=== PATIENT | male | born 1970 | race Caucasian/White ===

== ENCOUNTER 2022-02-22 12:02 | Emergency (ER) | payer BC, SELFPAY ==
--- NOTE | ~2022-02-22 | XR_ITS ---
EXAMINATION: XR CHEST CLINICAL INFORMATION: Chest pain COMPARISON: None TECHNIQUE: Portable upright AP view of the chest was obtained. FINDINGS: No pneumothorax, pleural reaction, or effusion. Lungs are clear. Heart size normal. Vascularity unremarkable. No visible acute bony abnormality. No free air beneath the diaphragm. XR/XR chest 1V IMPRESSION: Unremarkable examination.
[2022-02-22 12:55] VITALS: BP 135/79; PULSE 58; RESP 18; TEMP 36.6; O2SAT 98; BMI 33.5
[2022-02-22 14:05] LABS: MANUAL DIFF FLAG NO
[2022-02-22 14:07] LABS: Basophils Absolute Auto 0.1 X10*3/uL (0.0-0.2); Basophils Percent Auto 0.6 % (0-2); Eosinophils Absolute Auto 0.2 X10*3/uL (0.0-0.4); Eosinophils Percent Auto 2.7 % (0-4); Hematocrit 40.4 % (42.0-52.0); Hemoglobin 13.6 g/dl (14.0-18.0); Imm Gran Abs Auto 0.03 X10*3/uL (0.00-0.03); Imm Gran Pct Auto 0.4 % (0.0-0.4); Lymphocytes Absolute Auto 2.2 X10*3/uL (1.2-4.9); Lymphocytes Percent Auto 28.5 % (20-40); Mean Corpuscular HGB Conc 33.7 g/dl (31.0-36.0); Mean Corpuscular Hemoglobin 30.5 pg (27.0-33.0); Mean Corpuscular Volume 90.6 fL (80.0-98.0); Mean Platelet Volume 8.8 fL (9.4-12.4); Monocytes Absolute Auto 0.5 X10*3/uL (0.1-1.2); Neutrophils Absolute Auto 4.7 x10*3/uL (2.0-8.3); Neutrophils Percent Auto 60.8 % (45-73); Platelet Count 277 X10*3/uL (160-400); Red Blood Count 4.46 X10*6/uL (4.60-5.80); Red Cell Distribution Width 11.7 % (11.0-16.0); White Blood Count 7.7 X10*3/uL (4.8-10.8)
[2022-02-22 14:35] LABS: Anion Gap 13 (12-20); Blood Urea Nitrogen 16 mg/dL (9-16); Carbon Dioxide 27 mmol/L (22-29); Chloride 104 mmol/L (96-108); Creatinine Clr Calc Pharmacy 116.4; Estimated Glomerular Filt Rate > 60; Glucose Random 93 mg/dL (60-115); Potassium 4.3 mmol/L (3.3-5.1); Sodium 140 mmol/L (135-145)
[2022-02-22 14:37] LABS: Troponin-I High Sensitivity < 3.5 ng/L (<3.5-35.0)
--- NOTE | 2022-02-22 14:45 | ECG_ITS ---
Test Reason : chest pain Blood Pressure : / mmHG Vent. Rate : 061 BPM Atrial Rate : 061 BPM P-R Int : 164 ms QRS Dur : 090 ms QT Int : 426 ms P-R-T Axes : 028 -05 -01 degrees QTc Int : 428 ms Normal sinus rhythm Minimal voltage criteria for LVH, may be normal variant ( R in aVL ) Septal infarct , age undetermined Abnormal ECG No previous ECGs available Referred By: Generic ED Physician Electronically Signed By:AUGUSTO VILLAGRAN MD
--- NOTE | 2022-02-22 15:36 | ED.CHESTPAIN ---
HPI - Chest Pain General Chief Complaint: Chest Pain Stated Complaint: CHEST PAIN TO NECK, DIZZY, SWEATS Time Seen by Provider: 02/22/22 15:26 Source: patient Mode of arrival: ambulatory Limitations: no limitations History of Present Illness HPI narrative: this is 52 years old male presented to the emergency department with chief complaint of chest pain dizziness diaphoresis. The patient been ongoing for weeks last episode was this morning of work last of about 5 minutes. Patient had prior evaluation for chest pain he states that in the past he had the 2 stress tests. MD complaint: chest pain Onset (ago): hour(s) (5) Prior episodes: Yes Onset: during rest Pain location: left chest Pain radiation: other (neck) Severity: mild Quality: aching Relieving factors: rest Exacerbating factors: nothing Context: recent illness Associated symptoms: nausea Risk Factors Coronary artery disease risk factors: hyperlipidemia and hypertension Thoracic aortic dissection risk factors: none Related Data Allergies Allergy/AdvReac Type Severity Reaction Status Date / Time Penicillins Allergy Anaphylaxis Verified 02/22/22 12:55 Review of Systems Review of Systems: Yes all other systems are reviewed and are negative Eyes: Eyes: Reports no additional eye complaints ENT: Reports system reviewed and no additional complaints, except as documented Cardiovascular: Cardiovascular: Denies syncope, Denies rapid heart rate, Denies pedal edema and Denies leg edema Respiratory: Respiratory: Reports no additional respiratory complaints Neurologic: Reports system reviewed and no additional complaints, except as documented and Denies syncope [facility] Past Medical History [facility] Narrative: Hypertension, hypercholesterolemia Social History Social History Advance Directives: Yes Advance Directives Information Provided: No Advance Directives on File: No Physical Exam Vital Signs: Vital Signs: Last Vital Signs Temp 98.3 F 02/22/22 15:42 Pulse 54 02/22/22 17:28 Resp 18 02/22/22 17:28 BP 124/67 02/22/22 17:28 Pulse Ox 98 02/22/22 17:28 O2 Del Method 02/22/22 17:28 BMI result Body Mass Index 33.5 Const: General: cooperative Nutritional Appearance: well nourished Orientation/consciousness: patient oriented x3 Limitations: no limitations HEENT: Head: Yes normal to inspection General nose exam: Normal external nose present Face and sinus: Yes normal facial exam Mouth: Normal oral and palatal mucosa present Throat: Yes posterior oropharynx normal Neck: Neck: Yes normal visual inspection, Yes full ROM and Yes no lymphadenopathy Chest: Chest palpation & inspection: normal inspection of the chest Resp: Effort & Inspection: normal respiratory effort Auscultation: clear to auscultation bilaterally Percussion: percussion normal Cardio: Jugular venous distension: no JVD Palpation: normal PMI Rate: regular rate Rhythm: regular rhythm GI: Inspection: Yes normal to inspection Palpation (GI): Soft to palpation, not firm and nontender Auscultation: normal bowel sounds Back/Spine/Pelvis: Thoracic/Lumbar Spine: thoracic and lumbar spine normal to inspection Skin: General skin exam: no rashes or lesions noted Rashes: no rashes Neuro: General: patient oriented x3 Course Reevaluation(s) Reevaluation #1: patient remain pain-free, delta troponin negative, D-dimer is negative as well. I did do a bedside cardiac ultrasound, good wall motion, no pericardial effusion. At this time reticular patient can be safely discharged home with follow-up with PCP, it will need outpatient stress test. The patient to call the PCP tomorrow to arrange a follow-up, to return to the emergency room is worse. The patient is very comfortable with the plan. MDM - Chest Pain Lab Data Result diagrams: 02/22/22 13:55 02/22/22 13:55 Labs: Lab Results 02/22/22 02/22/22 02/22/22 Range/Units 13:55 13:55 13:55 WBC 7.7 (4.8-10.8) X10*3/uL RBC 4.46 L (4.60-5.80) X10*6/uL Hgb 13.6 L (14.0-18.0) g/dl Hct 40.4 L (42.0-52.0) % MCV 90.6 (80.0-98.0) fL MCH 30.5 (27.0-33.0) pg MCHC 33.7 (31.0-36.0) g/dl RDW 11.7 (11.0-16.0) % Plt Count 277 (160-400) X10*3/uL MPV 8.8 L (9.4-12.4) fL Immature Gran % (Auto) 0.4 (0.0-0.4) % Neut % (Auto) 60.8 (45-73) % Lymph % (Auto) 28.5 (20-40) % Crawford % (Auto) 7.0 (2-11) % Eos % (Auto) 2.7 (0-4) % Baso % (Auto) 0.6 (0-2) % Lymph # (Auto) 2.2 (1.2-4.9) X10*3/uL Crawford # (Auto) 0.5 (0.1-1.2) X10*3/uL Eos # (Auto) 0.2 (0.0-0.4) X10*3/uL Baso # (Auto) 0.1 (0.0-0.2) X10*3/uL Abs Immat Gran (auto) 0.03 (0.00-0.03) X10*3/uL Absolute Neuts (auto) 4.7 (2.0-8.3) x10*3/uL Absolute Nucleated RBC 0.000 (0.0-0.012) X10*3/uL Nucleated RBC % (auto) 0.0 (0.0-0.2) /100WBC D-Dimer High Sensitivty NG/ML Sodium 140 (135-145) mmol/L Potassium 4.3 (3.3-5.1) mmol/L Chloride 104 (96-108) mmol/L Carbon Dioxide 27 (22-29) mmol/L Anion Gap 13 (12-20) BUN 16 (9-16) mg/dL Creatinine 1.07 (0.5-1.4) mg/dL Estim Creat Clear Calc 116.4 Estimated GFR > 60 Random Glucose 93 (60-115) mg/dL Calcium 10.0 (8.4-10.2) mg/dL Troponin I High Sens < 3.5 (<3.5-35.0) ng/L 02/22/22 02/22/22 Range/Units 16:50 16:50 WBC (4.8-10.8) X10*3/uL RBC (4.60-5.80) X10*6/uL Hgb (14.0-18.0) g/dl Hct (42.0-52.0) % MCV (80.0-98.0) fL MCH (27.0-33.0) pg MCHC (31.0-36.0) g/dl RDW (11.0-16.0) % Plt Count (160-400) X10*3/uL MPV (9.4-12.4) fL Immature Gran % (Auto) (0.0-0.4) % Neut % (Auto) (45-73) % Lymph % (Auto) (20-40) % Crawford % (Auto) (2-11) % Eos % (Auto) (0-4) % Baso % (Auto) (0-2) % Lymph # (Auto) (1.2-4.9) X10*3/uL Crawford # (Auto) (0.1-1.2) X10*3/uL Eos # (Auto) (0.0-0.4) X10*3/uL Baso # (Auto) (0.0-0.2) X10*3/uL Abs Immat Gran (auto) (0.00-0.03) X10*3/uL Absolute Neuts (auto) (2.0-8.3) x10*3/uL Absolute Nucleated RBC (0.0-0.012) X10*3/uL Nucleated RBC % (auto) (0.0-0.2) /100WBC D-Dimer High Sensitivty < 150 NG/ML Sodium (135-145) mmol/L Potassium (3.3-5.1) mmol/L Chloride (96-108) mmol/L Carbon Dioxide (22-29) mmol/L Anion Gap (12-20) BUN (9-16) mg/dL Creatinine (0.5-1.4) mg/dL Estim Creat Clear Calc Estimated GFR Random Glucose (60-115) mg/dL Calcium (8.4-10.2) mg/dL Troponin I High Sens < 3.5 (<3.5-35.0) ng/L ECG Data ECG #1: Pacemaker model: EKG was reviewed in normal sinus rhythm rate 61 ST-T segment isoelectric Discharge Plan Discharge Clinical Impression: Chest pain Patient Disposition: Home, Self-Care Instructions: Chest Pain (DC) Additional Instructions: Follow-up with your primary care physician, return to the emergency room if you worse any concern. You should call your primary care tomorrow Referrals: Mathew Murry MD [Primary Care Provider] - 1 day Stand Alone Forms: Work/School Release Interventions: ED Discharge Assessment Last Done: 02/22/22 17:36 Discharge Date/Time: 02/22/22 17:37
[2022-02-22 15:42] VITALS: BP 117/76; PULSE 56; RESP 18; TEMP 36.8; O2SAT 100
[2022-02-22 17:11] LABS: D Dimer High Sensitivity < 150 NG/ML
[2022-02-22 17:19] LABS: Troponin-I High Sensitivity < 3.5 ng/L (<3.5-35.0)
[2022-02-22 17:28] VITALS: BP 124/67; PULSE 54; RESP 18; O2SAT 98
== END 2022-02-22 17:37 | disposition home or self-care (01) ==
PROVIDERS: Emergency Provider Emergency Medicine; PCP Family Medicine
DX: R07.89 Other chest pain (principal); M54.2 Cervicalgia; R42 Dizziness and giddiness; Z79.899 Other long term (current) drug therapy
CPT/HCPCS: 36415; 71045; 80048; 84484; 85025; 85379; 93005; 99283; 99284

== ENCOUNTER 2025-05-21 18:45 | Inpatient (IN) | payer BC, SELFPAY ==
--- NOTE | ~2025-05-21 | CT_ITS ---
CLINICAL HISTORY: Stroke Protocol CT head without contrast Comparison: None provided Findings: BRAIN: No acute infarct, hemorrhage, or mass effect. No abnormal atrophy. CSF SPACES: No hydrocephalus or effacement of basal cisterns. SKULL: No calvarial fracture. SINUSES: Moderate right maxillary sinus retention cyst. ORBITS: Limited views are unremarkable. OTHER: Negative. IMPRESSION: 1. No acute intracranial findings. This document has been electronically signed by: Ashtyn Henderson MD on 05/21/2025 19:10:59
--- NOTE | ~2025-05-21 | MR_ITS ---
CLINICAL HISTORY: facial droop, r o CVA --- Additional Notes or Special Instructions: to be done in AM MR Brain without gadolinium Comparison: None provided Findings: The ventricles and subarachnoid spaces are normal in size in the ventricles are normal in position with no midline shift or herniation. No restricted diffusion. No territorial infarct. No focal mass lesion or mass effect on this unenhanced study. No intra-axial or extra-axial hemorrhage. The midline structures are grossly normal. Flow voids are maintained within major vessels of the base brain. The orbits are normal. Large mucous retention cyst/polyp in right maxillary sinus. No focal bone lesion. IMPRESSION: No acute intracranial findings. Specifically no evidence of acute ischemia/infarct. This document has been electronically signed by: aRdha Hernandez MD on 05/22/2025 17:42:27
--- NOTE | ~2025-05-21 | CT_ITS ---
CLINICAL HISTORY: Stroke Protocol CT angiography head and neck with contrast. 3D Postprocessing. Comparison: None provided Findings: ANT CIRCULATION: No large vessel occlusion, AVM or aneurysm. POST CIRCULATION: No large vessel occlusion, AVM or aneurysm. 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 See same day CT brain for anatomic interpretation. AORTIC ARCH: Normal aortic arch. No high-grade stenosis. R COMMON CAROTID: No hemodynamically significant stenosis or dissection. R INTERNAL CAROTID: No hemodynamically significant stenosis or dissection. R EXTERNAL CAROTID: No hemodynamically significant stenosis or dissection. R VERTEBRAL: No high-grade stenosis or dissection. L COMMON CAROTID: No hemodynamically significant stenosis or dissection. L INTERNAL CAROTID: No hemodynamically significant stenosis or dissection. L EXTERNAL CAROTID: No hemodynamically significant stenosis or dissection. L VERTEBRAL: No high-grade stenosis or dissection. LUNG APEX: Limited views of the lung apices are clear. SOFT TISSUES: Left thyroid calcification with small nodules. LIMITED SPINE: No evidence of fracture on limited views. IMPRESSION: Patent head and neck CTA. This document has been electronically signed by: Ashtyn Henderson MD on 05/21/2025 20:06:55
[2025-05-21 18:47] VITALS: BP 176/106; PULSE 89; RESP 18; TEMP 37; O2SAT 97; BMI 37.0
--- NOTE | 2025-05-21 18:47 | ED.GENADULT ---
HPI - General Adult General Chief complaint: Stroke Stated complaint: ?Stroke Time Seen by Provider: 05/21/25 18:53 History of Present Illness ED Provider: Dr. Hale HPI narrative: 55 y/o M patient; PMH HTN; presents from home with . Reports approx 2-3 days of headache to the left-side. Today approx 45min prior to arrival felt the left side of his face become numb and his smile was noticed by his to be drooping. Patient also felt that his left arm was weaker. No history of prior similar symptoms. Did get flu shot yesterday. Otherwise denies: visual changes, nausea/vomiting, abdominal pain, chest pain, SOB, difficulty with gait. Related Data Allergies Allergy/AdvReac Type Severity Reaction Status Date / Time Penicillins Allergy Anaphylaxis Verified 02/22/22 12:55 tree nut Allergy Angioedema Verified 05/21/25 18:48 Review of Systems Review of Systems: Yes all other systems are reviewed and are negative PMFSH Past Medical History Attestation statement: The following information was validated with the patient. Source: old records reviewed Social History Social History Alcohol intake: current Alcohol intake frequency: a few times a month Smoked in Last 30 Days: No Use of substances other than those prescribed or required for medical reasons: No Advance Directives: No Advance Directives Information Provided: No Physical Exam ED Vital Signs: Vital Signs - 24 hr 05/21/25 18:47 05/21/25 19:20 05/21/25 20:00 Temperature 98.6 F Pulse Rate 89 74 72 Respiratory Rate 18 16 15 Blood Pressure 176/106 H 150/76 H 160/85 H Pulse Oximetry 97 97 98 Oxygen Delivery Method Room Air Room Air Room Air BMI result Body Mass Index 37.0 Patient is afebrile, markedly hypertensive Const General: cooperative Orientation/consciousness: patient oriented x3 HENMT Other: + Left facial droop Appropriate movement of bilateral eyebrows, possibly mildly diminished on left side Able to close both eyes against resistance, mildly diminished on left side Head: Yes normal to inspection and Yes atraumatic Eyes General: appearance normal, both eyes and all related structures Pupils: Equal, round and reactive pupils present EOM: EOMs intact bilaterally Neck Neck: Yes normal visual inspection, Yes full ROM, Yes supple and No tender Chest Chest palpation & inspection: normal inspection of the chest and normal palpation of entire chest wall Resp Effort & Inspection: normal respiratory effort, able to speak in complete sentences, no cough and no respiratory distress Auscultation: clear to auscultation bilaterally Cardio Rate: regular rate Rhythm: regular rhythm Peripheral pulses: Peripheral pulses 2+ throughout GI Inspection: Yes normal to inspection, No Abdominal wall edema and No distended Palpation (GI): Soft to palpation, not firm, nontender, no guarding and not rigid Auscultation: normal bowel sounds Back/Spine/Pelvis Back: No back tenderness Neuro Other: Strength 5/5 in upper and lower extremities. Sensation 5/5 in upper and lower extremities. + Left sided facial droop, + paresthasias to left sided face Normal finger to nose. No nystagmus. No dysdiadokinesis. Gait is intact. General: patient oriented x3 and gait normal Cranial nerves: Yes Equal, round and reactive pupils present NIH Stroke Scale Internal: Initial- Upon Arrival Level of Consciousness: Alert Level of Consciousness Questions: Answers both questions correctly Level of Consciousness Commands: Performs both tasks correctly Best Gaze: Normal Visual: No visual loss Facial Palsy: Partial paralysis Motor Arm (Right): No drift Motor Arm (Left): No drift Motor Leg (Right): No drift Motor Leg (Left): No drift Limb Ataxia: Absent Sensory: Normal Best Language: No aphasia Dysarthia: Normal Extinction and Inattention: No abnormality Score: 2 Course Course Course Narrative: This is an RME: Additional HPI, ROS, PE not included below will be deferred to primary provider. RME assessment and note performed by: Karen Gusman PA-C This is a 55 year male, with a past medical history of hypercholesterolemia, and hypertension, who presents emergency department with concerns of headache x3 days, and new onset of numbness and tingling to the left side of his face which started 15-20 minutes ago. He is here with his . He is not on anticoagulation. Patient with slight left-sided facial droop rest well as unequal combination man strength, weak on the left. Plan: Initiated stroke protocol. Reevaluation(s) Reevaluation #1: Patient is afebrile and markedly hypertensive. Sent from triage to CT scanner for CT Head/CTA Head/CTA Neck. Screening EKG and labs sent. Provided 1L IVF and headache management with tylenol, reglan, and benadryl. NIHSS 2 for facial droop. I discussed with family I am hesitant for TNK/TPA due to unknown LKW. Hard to know if this would be 2 days ago when left headache started or today when facial droop was noticed. I had a long discussion with family about the risks versus benefits of TNK/TPA. Family (patient and ) are in agreement to defer this medication. I also discussed patient's symptoms could be due more to a fraser's palsy given he has less movement of the left eyebrow, less closure of the left eye, left sided facial droop, and started with left sided headache. I will treat with antiviral and steroid. I will add tick borne screening. 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 Patient's blood pressure improved without intervention. CTA unremarkable. Plan: Admit to hospitalist Condition: Stable Reevaluation #2: Labs reviewed. No significant leukocytosis or anemia. Medications Administered Discontinued Medications Generic Name Dose Route Start Last Admin Trade Name Freq PRN Reason Stop Dose Admin Diphenhydramine HCl 25 mg 05/21/25 18:54 05/21/25 19:14 Diphenhydramine Hcl 50 Mg/Ml Vial IVPUSH 05/21/25 18:55 25 mg ONCE ONE Administration Sodium Chloride 1,000 mls @ 999 mls/hr 05/21/25 19:00 05/21/25 19:14 Ns IV 05/21/25 20:00 999 mls/hr .Q1H1M WINSOME Administration Acetaminophen 1,000 mg in 100 mls @ 400 mls/hr 05/21/25 18:54 05/21/25 19:30 Ofirmev IV 05/21/25 19:08 Infused ONCE ONE Infusion Iohexol 100 ml 05/21/25 19:06 05/21/25 19:06 Iohexol 350 Mg/Ml 100 Ml Infus..Btl IV 05/21/25 19:07 70 ml ONCE ONE Administration Metoclopramide HCl 10 mg 05/21/25 18:54 05/21/25 19:14 Metoclopramide Hcl 10 Mg/2 Ml Vial IVPUSH 05/21/25 18:55 10 mg ONCE ONE Administration Prednisone 60 mg 05/21/25 19:44 05/21/25 19:59 Prednisone 20 Mg Tablet PO 05/21/25 19:45 60 mg ONCE ONE Administration Valacyclovir HCl 1,000 mg 05/21/25 19:44 05/21/25 19:58 Valacyclovir Hcl 1,000 Mg Tablet PO 05/21/25 19:45 1,000 mg ONCE ONE Administration Medical Decision Making Lab Data 05/21/25 19:16 05/21/25 19:16 Labs: Lab Results 05/21/25 05/21/25 Range/Units 18:55 19:16 WBC 8.5 (4.8-10.8) X10*3/uL RBC 4.21 L (4.60-5.80) X10*6/uL Hgb 12.9 L (14.0-18.0) g/dl Hct 38.3 L (42.0-52.0) % MCV 91.0 (80.0-98.0) fL MCH 30.6 (27.0-33.0) pg MCHC 33.7 (31.0-36.0) g/dl RDW 12.0 (11.0-16.0) % Plt Count 239 (160-400) X10*3/uL MPV 8.6 L (9.4-12.4) fL Immature Gran % (Auto) 0.6 H (0.0-0.4) % Neut % (Auto) 54.6 (45-73) % Lymph % (Auto) 33.4 (20-40) % Bladen % (Auto) 8.4 (2-11) % Eos % (Auto) 2.3 (0-4) % Baso % (Auto) 0.7 (0-2) % Lymph # (Auto) 2.9 (1.2-4.9) X10*3/uL Bladen # (Auto) 0.7 (0.1-1.2) X10*3/uL Eos # (Auto) 0.2 (0.0-0.4) X10*3/uL Baso # (Auto) 0.1 (0.0-0.2) X10*3/uL Abs Immat Gran (auto) 0.05 H (0.00-0.03) X10*3/uL Absolute Neuts (auto) 4.7 (2.0-8.3) x10*3/uL Absolute Nucleated RBC 0.000 (0.0-0.012) X10*3/uL Nucleated RBC % (auto) 0.0 (0.0-0.2) /100WBC PT 11.3 (10.9-12.4) SEC INR 1.0 (0.9-1.1) APTT 27.2 (26.7-34.1) SEC Sodium 139 (135-145) mmol/L Potassium 4.0 (3.3-5.1) mmol/L Chloride 106 (96-108) mmol/L Carbon Dioxide 23 (22-29) mmol/L Anion Gap 14 (12-20) BUN 18 H (9-16) mg/dL Creatinine 1.19 (0.5-1.4) mg/dL Estim Creat Clear Calc 100.8 Estimated GFR > 60 POC Glucose 105 (60-115) mg/dL Random Glucose 121 H (60-115) mg/dL Calcium 9.6 (8.4-10.2) mg/dL Troponin I High Sens < 2.7 (<3.5-35.0) ng/L Triglycerides 261 H (<150) mg/dL Cholesterol 180 (<200) mg/dL LDL Cholesterol, Calc 94 (<100) mg/dL HDL Cholesterol 34 L (>40) mg/dL Ethyl Alcohol 15 mg/dL Independent Interpretation I performed an independent interpretation of an: EKG Interpretation: EKG independently interpreted by myself as NSR 73BPM with normal intervals Radiology Impression Discussion of test interpretation with radiology: I have reviewed the radiologist's reading. Radiologist Impression: Reason for Exam: Stroke Protocol CLINICAL HISTORY: Stroke Protocol CT angiography head and neck with contrast. 3D Postprocessing. Comparison: None provided Findings: ANT CIRCULATION: No large vessel occlusion, AVM or aneurysm. POST CIRCULATION: No large vessel occlusion, AVM or aneurysm. 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 See same day CT brain for anatomic interpretation. AORTIC ARCH: Normal aortic arch. No high-grade stenosis. R COMMON CAROTID: No hemodynamically significant stenosis or dissection. R INTERNAL CAROTID: No hemodynamically significant stenosis or dissection. R EXTERNAL CAROTID: No hemodynamically significant stenosis or dissection. R VERTEBRAL: No high-grade stenosis or dissection. L COMMON CAROTID: No hemodynamically significant stenosis or dissection. L INTERNAL CAROTID: No hemodynamically significant stenosis or dissection. L EXTERNAL CAROTID: No hemodynamically significant stenosis or dissection. L VERTEBRAL: No high-grade stenosis or dissection. LUNG APEX: Limited views of the lung apices are clear. SOFT TISSUES: Left thyroid calcification with small nodules. LIMITED SPINE: No evidence of fracture on limited views. IMPRESSION: Patent head and neck CTA. This document has been electronically signed by: Ashtyn Henderson MD on 05/21/2025 20:06:55 CLINICAL HISTORY: Stroke Protocol CT head without contrast Comparison: None provided Findings: BRAIN: No acute infarct, hemorrhage, or mass effect. No abnormal atrophy. CSF SPACES: No hydrocephalus or effacement of basal cisterns. SKULL: No calvarial fracture. SINUSES: Moderate right maxillary sinus retention cyst. ORBITS: Limited views are unremarkable. OTHER: Negative. IMPRESSION: 1. No acute intracranial findings. This document has been electronically signed by: Ashtyn Henderson MD on 05/21/2025 19:10:59 Critical Care Time Critical Care Time Critical Care Time: Yes Total Critical Care Time: 38 Attestation: Total critical care time: Approximately?38?minutes Due to a high probability of clinically significant, life threatening deterioration, the patient required my highest level of preparedness to intervene emergently and I personally spent this critical care time directly and personally managing the patient. This critical care time included obtaining a history; examining the patient; pulse oximetry; ordering and review of studies; arranging urgent treatment with development of a management plan; evaluation of patient's response to treatment; frequent reassessment; and, discussions with other providers. This critical care time was performed to assess and manage the high probability of imminent, life-threatening deterioration that could result in multi-organ failure. It was exclusive of separately billable procedures and treating other patients? Discharge Plan Discharge Clinical Impression: Facial droop, Headache Patient Disposition: Admitted As Inpatient
--- NOTE | 2025-05-21 18:51 | ECG_ITS ---
Test Reason : STROKE? Blood Pressure : */* mmHG Vent. Rate : 73 BPM Atrial Rate : 73 BPM P-R Int : 160 ms QRS Dur : 92 ms QT Int : 394 ms P-R-T Axes : 45 -2 8 degrees QTcB Int : 434 ms Normal sinus rhythm Minimal voltage criteria for LVH, may be normal variant ( R in aVL ) Borderline ECG When compared with ECG of 22-Feb-2022 12:15, Criteria for Septal infarct are no longer Present Referred By: Karen Gusman Electronically Signed By: AUGUSTO VILLAGRAN MD
--- NOTE | 2025-05-21 18:52 | PC.NURSE ---
Caleb RN made aware of stroke alert, pt bought to ED5 directly from triage by secondary nurse at this time
[2025-05-21 18:59] LABS: Glucose, Whole Blood 105 mg/dL (60-115)
[2025-05-21] MEDS: iohexoL 350 MG/ML 100 ML INFUS..BTL IV (19:06)
--- NOTE | 2025-05-21 19:15 | PC.NURSE ---
pt brought from triage to ct. stroke alert called at this kei.e 20g placed in right ac in ct. once ct competed, pt taken to room 5. 20g placed in left ac. pt a&ox4, respirations even and unlabored. pt reports while making dinner he started to drink water when he felt tingling in the left side of face and water started coming out of mouth and when he looked in the mirror he noticed a facial droop. pt reports x2 days of headache. pt noted to have left sided facial droop but equal hand grasps noted. vss.
[2025-05-21 19:20] VITALS: BP 150/76; PULSE 74; RESP 16; O2SAT 97
[2025-05-21 19:22] LABS: MANUAL DIFF FLAG NO
[2025-05-21 19:23] LABS: Hematocrit 38.3 % (42.0-52.0); Hemoglobin 12.9 g/dl (14.0-18.0); Imm Gran Abs Auto 0.05 X10*3/uL (0.00-0.03); Imm Gran Pct Auto 0.6 % (0.0-0.4); Lymphocytes Absolute Auto 2.9 X10*3/uL (1.2-4.9); Mean Corpuscular HGB Conc 33.7 g/dl (31.0-36.0); Mean Corpuscular Hemoglobin 30.6 pg (27.0-33.0); Mean Corpuscular Volume 91.0 fL (80.0-98.0); NRBC Abs Auto 0.000 X10*3/uL (0.0-0.012); NRBC Pct Auto 0.0 /100WBC (0.0-0.2); Platelet Count 239 X10*3/uL (160-400); Red Blood Count 4.21 X10*6/uL (4.60-5.80); White Blood Count 8.5 X10*3/uL (4.8-10.8)
[2025-05-21 19:28] LABS: INTERNATIONAL NORM RATIO 1.0 (0.9-1.1); Prothrombin Time 11.3 SEC (10.9-12.4)
[2025-05-21 19:31] LABS: Partial Thromboplastin Time 27.2 SEC (26.7-34.1)
[2025-05-21 19:33] LABS: Stroke Lab Use COMPLETE
[2025-05-21 19:47] LABS: Anion Gap 14 (12-20); Blood Urea Nitrogen 18 mg/dL (9-16); Calcium 9.6 mg/dL (8.4-10.2); Carbon Dioxide 23 mmol/L (22-29); Chloride 106 mmol/L (96-108); Cholesterol 180 mg/dL (<200); Creatinine Clr Calc Pharmacy 100.8; Estimated Glomerular Filt Rate > 60; HDL Cholesterol 34 mg/dL (>40); Potassium 4.0 mmol/L (3.3-5.1); Sodium 139 mmol/L (135-145); Triglycerides 261 mg/dL (<150)
[2025-05-21 19:50] LABS: Troponin-I High Sensitivity < 2.7 ng/L (<3.5-35.0)
[2025-05-21 20:00] VITALS: BP 160/85; PULSE 72; RESP 15; O2SAT 98
--- NOTE | 2025-05-21 20:00 | PC.NURSE ---
bedside swallow eval completed at this time, pt tolerated without difficulty. pt medicated per mar
--- NOTE | 2025-05-21 20:31 | MHC.EDTECH ---
at 19:00- per provider, no PT/INR test needed for the patient. RN also aware.
--- NOTE | 2025-05-21 20:53 | PM.IMHP ---
History of Present Illness Date of Service: 05/21/25 Attending physician on admission: John Mccoy Chief Complaint: headache, facial droop Patient is a 55-year-old male with a past medical history significant for hypertension, hyperlipidemia, peripheral neuropathy and keratoconus, who presented to the ED due to a mild to moderate left-sided headache for the past 2 days it starts behind the left ear and wraps around the back of the head with new associated numbness and left-sided facial droop just prior to arrival. He reports some left-sided decreased mast maker strength as well and numbness and tingling in his right upper extremity which is questionably chronic. The patient denies any recent illness but did receive his flu shot yesterday. He denies any tick bites, chest pain, shortness of breath, nausea, vomiting, urinary symptoms. No numbness or tingling in the lower extremities, no weakness in the lower extremities. Review of Systems Constitutional: Constitutional: Denies body ache(s), Denies chills, Denies fever(s) and Reports headache(s) Eyes: Eyes: Denies change in vision ENT: Reports headache(s), Denies nasal discharge and Denies sore throat Cardiovascular: Cardiovascular: Denies chest pain, Denies rapid heart rate, Denies leg edema, Denies lightheadedness and Denies dyspnea Respiratory: Respiratory: Denies chest congestion, Denies cough, Denies dyspnea and Denies wheezing Gastrointestinal: Gastrointestinal: Denies abdominal pain, Denies diarrhea, Denies nausea and Denies vomiting Neurologic: Reports headache(s) Allergic/Immunologic: Allergic/Immunologic: Denies wheezing PMFSH Social History Alcohol intake: current Alcohol intake frequency: a few times a month Patient Tobacco Use Status: Never used Tobacco Smoked in Last 30 Days: No Use of substances other than those prescribed or required for medical reasons: No Advance Directives: No Advance Directives Information Provided: No Nutrition Risks: No Nutritional Risk Meds Allergies Allergy/AdvReac Type Severity Reaction Status Date / Time Penicillins Allergy Anaphylaxis Verified 02/22/22 12:55 tree nut Allergy Angioedema Verified 05/21/25 18:48 Home Medications ?Medication ?Instructions ?Recorded ?Confirmed ?Last Taken ?Type aspirin 81 mg tablet,delayed 81 mg PO DAILY 05/21/25 05/21/25 Unknown History release atorvastatin 10 mg tablet 10 mg PO BEDTIME 05/21/25 05/21/25 05/20/25 History gabapentin 300 mg capsule 300 mg PO TID PRN Pain 05/21/25 05/21/25 Unknown History lisinopril 30 mg tablet 30 mg PO DAILY 05/21/25 05/21/25 05/21/25 History metoprolol succinate 100 mg 100 mg PO BEDTIME 05/21/25 05/21/25 05/20/25 History tablet,extended release 24 hr Physical Exam Vital Signs and Narrative: Vital Signs: Last Vital Signs Temp 98.6 F 05/21/25 18:47 Pulse 72 05/21/25 20:00 Resp 15 05/21/25 20:00 BP 160/85 H 05/21/25 20:00 Pulse Ox 98 05/21/25 20:00 O2 Del Method Room Air 05/21/25 20:00 BMI result Body Mass Index 37.0 General: AOx3, no acute distress Resp: CTA bilaterally CVS: S1, S2, RRR GI: +BS, NT, no distention Skin: Warm, dry, no rash Neuro: L facial droop with smile, difficulty with raising left eyebrow and keeping eye shut. no upper or lower extremity weakness or decreased sensation. tongue deviates right. decreased sensation L mid-lower face. Extremities: No edema Psych: Appropriate affect Results Labs 05/21/25 19:16 05/21/25 19:16 Labs: Laboratory Results - last 24 hr 05/21/25 05/21/25 18:55 19:16 MCV 91.0 MCH 30.6 MCHC 33.7 RDW 12.0 Plt Count 239 MPV 8.6 L Immature Gran % (Auto) 0.6 H Neut % (Auto) 54.6 Lymph % (Auto) 33.4 O'Brien % (Auto) 8.4 Eos % (Auto) 2.3 Baso % (Auto) 0.7 Lymph # (Auto) 2.9 O'Brien # (Auto) 0.7 Eos # (Auto) 0.2 Baso # (Auto) 0.1 Abs Immat Gran (auto) 0.05 H Absolute Neuts (auto) 4.7 Absolute Nucleated RBC 0.000 Nucleated RBC % (auto) 0.0 PT 11.3 INR 1.0 APTT 27.2 Anion Gap 14 Estim Creat Clear Calc 100.8 Estimated GFR > 60 POC Glucose 105 Random Glucose 121 H Calcium 9.6 Troponin I High Sens < 2.7 Triglycerides 261 H Cholesterol 180 LDL Cholesterol, Calc 94 HDL Cholesterol 34 L Ethyl Alcohol 15 Assessment and Plan (1) Facial droop: Status: Acute (2) Headache: Status: Acute Plan Patient is a 55-year-old male with a past medical history significant for hypertension, hyperlipidemia, peripheral neuropathy and keratoconus, who presented to the ED due to a mild to moderate left-sided headache for the past 2 days it starts behind the left ear and wraps around the back of the head with new associated numbness and left-sided facial droop just prior to arrival. Admission for CVA workup versus Luther's palsy facial droop/headache - blood smear concerning for possible babesiosis, pending review - azithromycin and atovaquone - tick panel pending - ID consult - prednisone and valacyclovir for possible Luther's palsy - MRI - echo - neurology consult Hypertension - lisinopril and metoprolol Hyperlipidemia - statin, may need high intensity pending neurology consult Peripheral neuropathy - gabapentin Full code VTE prophylaxis: Lovenox Patient with new facial droop and headache, concern for Luther's palsy versus CVA, possible the BCL sepsis, requiring admission for at least 2 midnight stay for IV antibiotics, steroids and further evaluation. Quality Stroke Does the patient have a stroke diagnosis?: No VTE Prior VTE?: No VTE Risk Level:: Medical - moderate - high VTE Device Contraindication: Treatment Not Indicated VTE Drug Contraindication: N/A - Med Ordered
--- NOTE | 2025-05-21 21:11 | PHA.MEDREC ---
Addendum entered by Shaka Richardson RPh 05/21/25 21:22: MED REC REVIEWED BY Antoinette Original Note: Pharmacy Consult ? Medication Reconciliation Pharmacy has completed the medication reconciliation. Patient was able to name all of his medications. Patient states he is not taking Escitalopram 10 mg. Patient had all his morning medications today.
[2025-05-21 21:37] VITALS: BP 149/85; PULSE 88; RESP 15; TEMP 36.7; O2SAT 98
[2025-05-21 22:07] VITALS: BP 155/86; PULSE 85; RESP 18; O2SAT 95
[2025-05-21 23:07] VITALS: BP 167/93; PULSE 97
[2025-05-21] MEDS: Metoprolol Succinate ER 100 MG TAB.ER.24H PO (23:07)
--- NOTE | 2025-05-21 23:08 | PC.NURSE ---
pt medicated per oct, tolerated whole well with water
[2025-05-22] VITALS (8 sets, daily range): BP systolic 110–165; BP diastolic 56–85; PULSE 60–76; RESP 16–18; TEMP 36.2–36.8; O2SAT 93–96; BMI 37.3
[2025-05-22] MEDS: 0.9 % Sodium Chloride Flush 3 ML SYRINGE IVFLUSH ×4 (00:17→22:14)
--- NOTE | 2025-05-22 00:17 | PC.NURSE ---
no access to mepron at this time, PA Eileen aware
[2025-05-22 07:15] LABS: Hematocrit 40.3 % (42.0-52.0); Hemoglobin 13.5 g/dl (14.0-18.0); Mean Corpuscular HGB Conc 33.5 g/dl (31.0-36.0); Mean Corpuscular Hemoglobin 30.5 pg (27.0-33.0); Mean Corpuscular Volume 91.0 fL (80.0-98.0); NRBC Abs Auto 0.000 X10*3/uL (0.0-0.012); NRBC Pct Auto 0.0 /100WBC (0.0-0.2); Platelet Count 292 X10*3/uL (160-400); Red Blood Count 4.43 X10*6/uL (4.60-5.80); White Blood Count 10.7 X10*3/uL (4.8-10.8)
[2025-05-22 07:37] LABS: Anion Gap 13 (12-20); Blood Urea Nitrogen 19 mg/dL (9-16); Calcium 9.8 mg/dL (8.4-10.2); Carbon Dioxide 21 mmol/L (22-29); Chloride 109 mmol/L (96-108); Creatinine Clr Calc Pharmacy 120.4; Estimated Glomerular Filt Rate > 60; Potassium 4.4 mmol/L (3.3-5.1); Sodium 139 mmol/L (135-145)
[2025-05-22 07:53] LABS: Thyroid Stimulating Hormone 1.11 uIU/mL (0.32-4.0)
[2025-05-22] MEDS: Aspirin Enteric Coated 81 MG TABLET.DR PO (08:47)
--- NOTE | 2025-05-22 11:51 | HO.PM.IMPN ---
Subjective Subjective Date of Service: 05/22/25 Interval History: Still with some CABEZAS, and left side facial numness, no signs of Luther's palsy Physical Exam Vital Signs: Vital Signs: Last Vital Signs Temp 97.2 F 05/22/25 07:01 Pulse 72 05/22/25 07:01 Resp 16 05/22/25 07:01 BP 137/75 05/22/25 07:01 Pulse Ox 94 05/22/25 07:01 O2 Del Method Room Air 05/22/25 07:01 BMI result Body Mass Index 37.3 Const: Other: General: AO X 3, no acute distress Resp: CTA bilateral CVS: S1,S2,RRR GI: +BS, NT, no distention Skin: No rash Neuro: motor grossly intact Psych: appropriate affect Objective Data Active Medications Acetaminophen (Acetaminophen 325 Mg Tablet) 975 mg PO Q6H PRN PRN Reason: Pain, Mild 1-3,fever,headache Aspirin (Aspirin Enteric Coated 81 Mg Tablet.Dr) 81 mg PO DAILY [facility] Last Admin: 05/22/25 08:47 Dose: 81 mg Documented By: CAR Atorvastatin Calcium (Atorvastatin Calcium 10 Mg Tablet) 10 mg PO BEDTIME [facility] Last Admin: 05/21/25 23:06 Dose: 10 mg Documented By: ZEHRA Atovaquone (Atovaquone 750 Mg/5 Ml Oral.Susp) 750 mg PO BID [facility] Last Admin: 05/22/25 08:46 Dose: 750 mg Documented By: CAR Azithromycin (Azithromycin 500 Mg Tablet) 500 mg PO 2200 [facility] Last Admin: 05/22/25 00:16 Dose: 500 mg Documented By: ZEHRA Calcium Carbonate (Calcium Carbonate 750 Mg Tab.Chew) 750 mg PO Q4H PRN PRN Reason: Heartburn Enoxaparin Sodium (Enoxaparin Sodium 40 Mg/0.4 Ml Syringe) 40 mg SUBCUT Q24H [facility] Last Admin: 05/21/25 23:06 Dose: 40 mg Documented By: ZEHRA Gabapentin (Gabapentin 300 Mg Capsule) 300 mg PO TID PRN PRN Reason: leg pain Lisinopril (Lisinopril 10 Mg Tablet) 30 mg PO DAILY [facility]; Protocol Last Admin: 05/22/25 08:47 Dose: 30 mg Documented By: CAR Magnesium Hydroxide (Milk Of Magnesia 30 Ml Oral.Susp) 30 ml PO DAILY PRN PRN Reason: Constipation Melatonin (Melatonin 3 Mg Tablet) 6 mg PO BEDTIME PRN PRN Reason: Insomnia Metoprolol Succinate (Metoprolol Succinate Er 100 Mg Tab.Er.24h) 100 mg PO BEDTIME [facility]; Protocol Last Admin: 05/21/25 23:07 Dose: 100 mg Documented By: ZEHRA Ondansetron HCl (Ondansetron Hcl 4 Mg/2 Ml Vial) 4 mg IVPUSH Q8H PRN PRN Reason: Nausea and Vomiting Oxycodone HCl (Oxycodone Hcl Immed Release 5 Mg Tablet) 5 mg PO Q6H PRN PRN Reason: Pain, Severe (Pain Scale 7-10) Prednisone (Prednisone 20 Mg Tablet) 60 mg PO DAILY [facility] Stop: 05/27/25 09:01 Last Admin: 05/22/25 08:47 Dose: 60 mg Documented By: CAR Sodium Chloride (0.9 % Sodium Chloride Flush 3 Ml Syringe) 3 ml IVFLUSH QSHIFT [facility] Last Admin: 05/22/25 08:48 Dose: 3 ml Documented By: CAR Valacyclovir HCl (Valacyclovir Hcl 1,000 Mg Tablet) 1,000 mg PO TID [facility] Last Admin: 05/22/25 08:47 Dose: 1,000 mg Documented By: CAR Labs 05/22/25 06:31 05/22/25 06:31 Labs: Laboratory Results - last 24 hr 05/21/25 05/21/25 05/22/25 18:55 19:16 06:31 MCV 91.0 91.0 MCH 30.6 30.5 MCHC 33.7 33.5 RDW 12.0 11.9 Plt Count 239 292 MPV 8.6 L 9.2 L Immature Gran % (Auto) 0.6 H Neut % (Auto) 54.6 Lymph % (Auto) 33.4 Johnston % (Auto) 8.4 Eos % (Auto) 2.3 Baso % (Auto) 0.7 Lymph # (Auto) 2.9 Johnston # (Auto) 0.7 Eos # (Auto) 0.2 Baso # (Auto) 0.1 Abs Immat Gran (auto) 0.05 H Absolute Neuts (auto) 4.7 Absolute Nucleated RBC 0.000 0.000 Nucleated RBC % (auto) 0.0 0.0 PT 11.3 INR 1.0 APTT 27.2 Anion Gap 14 13 Estim Creat Clear Calc 100.8 120.4 Estimated GFR > 60 > 60 POC Glucose 105 Random Glucose 121 H 144 H Calcium 9.6 9.8 Troponin I High Sens < 2.7 Triglycerides 261 H Cholesterol 180 LDL Cholesterol, Calc 94 HDL Cholesterol 34 L TSH 1.11 Ethyl Alcohol 15 Assessment and Plan (1) Headache: Status: Acute (2) Facial droop: Status: Acute Plan Patient is a 55-year-old male with a past medical history significant for hypertension, hyperlipidemia, peripheral neuropathy and keratoconus, who presented to the ED due to a mild to moderate left-sided headache for the past 2 days it starts behind the left ear and wraps around the back of the head with new associated numbness and left-sided facial droop just prior to arrival. Admission for CVA workup versus Luther's palsy facial droop/headache, CTH CTA of H and N negative, exam essentially unremarkable. Doubt stroke or Coolin's palsy. ? concern of Babesiois on blood smear, official result pending. Continue Atovaquone and Azithro, ID and Neuro consult pending. Not sure of utility of MRI and will leave to Neuro Hypertension - lisinopril and metoprolol Hyperlipidemia - statin, may need high intensity pending neurology consult Peripheral neuropathy - gabapentin Full code VTE prophylaxis: Lovenox Patient with new facial droop and headache, concern for Luther's palsy versus CVA, possible the BCL sepsis, requiring admission for at least 2 midnight stay for IV antibiotics, steroids and further evaluation. Quality Stroke Does the patient have a stroke diagnosis?: No VTE Prior VTE?: No VTE Risk Level:: Medical - moderate - high VTE Device Contraindication: Treatment Not Indicated VTE Drug Contraindication: N/A - Med Ordered
--- NOTE | 2025-05-22 16:01 | MHC.CM.PN ---
CM ATTEMPTED TO SEE PT WHO WAS WITH PHYSICAL THERAPIST CM WILL REVISIT ONCE PT EVAL COMPLETE AND RECOMMENDATIONS KNOWN
[2025-05-22] MEDS: diazePAM 10 MG/2 ML CARTRIDGE 5 MG IVPUSH (16:25)
[2025-05-22] MEDS: Metoprolol Succinate ER 100 MG TAB.ER.24H PO (22:13)
[2025-05-23] VITALS: BP 145/67; PULSE 77; RESP 17; TEMP 36.9; O2SAT 98
[2025-05-23 03:23] VITALS: BP 120/65; PULSE 63; RESP 16; TEMP 36.6; O2SAT 96
[2025-05-23 05:58] LABS: Hematocrit 41.0 % (42.0-52.0); Hemoglobin 13.2 g/dl (14.0-18.0); Mean Corpuscular HGB Conc 32.2 g/dl (31.0-36.0); Mean Corpuscular Hemoglobin 29.8 pg (27.0-33.0); Mean Corpuscular Volume 92.6 fL (80.0-98.0); NRBC Abs Auto 0.000 X10*3/uL (0.0-0.012); NRBC Pct Auto 0.0 /100WBC (0.0-0.2); Platelet Count 210 X10*3/uL (160-400); Red Blood Count 4.43 X10*6/uL (4.60-5.80); White Blood Count 14.9 X10*3/uL (4.8-10.8)
[2025-05-23 06:15] LABS: Anion Gap 14 (12-20); Blood Urea Nitrogen 23 mg/dL (9-16); Calcium 9.7 mg/dL (8.4-10.2); Carbon Dioxide 23 mmol/L (22-29); Chloride 107 mmol/L (96-108); Creatinine Clr Calc Pharmacy 119.2; Estimated Glomerular Filt Rate > 60; Potassium 3.9 mmol/L (3.3-5.1); Sodium 140 mmol/L (135-145)
[2025-05-23 07:08] VITALS: BP 151/78; PULSE 65; RESP 16; TEMP 36.1; O2SAT 97
[2025-05-23] MEDS: 0.9 % Sodium Chloride Flush 3 ML SYRINGE IVFLUSH (09:00)
[2025-05-23] MEDS: Aspirin Enteric Coated 81 MG TABLET.DR PO (09:14)
[2025-05-23 11:29] VITALS: BP 152/72; PULSE 70; RESP 16; TEMP 36.1; O2SAT 96
--- NOTE | 2025-05-23 12:18 | P.DS_ITS ---
DS: Providers Provider Date of Service: 05/23/25 Date of admission: 05/21/25 20:20 Date of discharge: 05/23/25 Primary care physician: Mathew Murry MD Consults: 05/21/25 22:44 Consult to Neurology Routine Consulting Provider: [facility] Reason for consultation: facial droop, numbness, CVA vs Mchenry palsy Has provider been notified: No 05/21/25 23:41 Consult to Infectious Diseases Routine Consulting Provider: [facility] Reason for consultation: ?babesiosis on smear DS: Diagnosis Discharge Diagnosis (1) Headache: Status: Resolved (2) Facial droop: Status: Resolved DS: Summary Hospital Course Hospital Course: Admission hpi Attending physician on admission: John Mccoy Chief Complaint: headache, facial droop Patient is a 55-year-old male with a past medical history significant for hypertension, hyperlipidemia, peripheral neuropathy and keratoconus, who presented to the ED due to a mild to moderate left-sided headache for the past 2 days it starts behind the left ear and wraps around the back of the head with new associated numbness and left-sided facial droop just prior to arrival. 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 The patient denies any recent illness but did receive his flu shot yesterday. He denies any tick bites, chest pain, shortness of breath, nausea, vomiting, urinary symptoms. No numbness or tingling in the lower extremities, no weakness in the lower extremities. Hospital course: Patient presented with left sided headache, facial numness and abnormal smile. CTA of head and neck have been unremarkable and MRI also unremarkable. concern raied about possible Mchenry's palsy and given steroid, symptoms have improved but still has some residual. Also there was concern raised about t babesiosis and is been getting Atovaquone and Azithromycin. 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 and recommends Prednisone, Acyclovir and Lyme test Time Attestation Discharge Coordination Time (in mins): \35 Quality: Safe Use of Opioids Does Pt have an Active Cancer Diagnosis on the Problem List?: No Quality: Stroke Does the patient have a stroke diagnosis?: No Physical Exam Vital Signs: Vital Signs: Last Vital Signs Temp 97.0 F 05/23/25 11:29 Pulse 70 05/23/25 11:29 Resp 16 05/23/25 11:29 BP 152/72 H 05/23/25 11:29 Pulse Ox 96 05/23/25 11:29 O2 Del Method Room Air 05/23/25 11:29 BMI result Body Mass Index 37.3 DS: Data Data Completed and Pending Labs on day of discharge: Laboratory Results - last 24 hr 05/23/25 05:37 WBC 14.9 H RBC 4.43 L Hgb 13.2 L Hct 41.0 L MCV 92.6 MCH 29.8 MCHC 32.2 RDW 12.3 Plt Count 210 D MPV 9.9 Absolute Nucleated RBC 0.000 Nucleated RBC % (auto) 0.0 Sodium 140 Potassium 3.9 Chloride 107 Carbon Dioxide 23 Anion Gap 14 BUN 23 H Creatinine 1.01 Estim Creat Clear Calc 119.2 Estimated GFR > 60 Random Glucose 119 H Calcium 9.7 Discharge Plan Discharge Anticipated Discharge Date/Time: 05/23/25 12:44 Patient Disposition: Home, Self-Care Discharge Diagnosis: Luther's Palsy Referrals: Mathew Murry MD [Primary Care Provider, Internal Medicine] - 1 Week Discharge Medications: New valacyclovir 1 gram tablet 1,000 mg PO TID Qty: 21 0RF prednisone 10 mg tablet See Taper PO DAILY Qty: 33 0RF Taper: Prednisone 60 mg daily for 3 Days and 0 Hour 50 mg daily for 1 Day and 0 Hour 40 mg daily for 1 Day and 0 Hour 30 mg daily for 1 Day and 0 Hour 20 mg daily for 1 Day and 0 Hour 10 mg daily for 1 Day and 0 Hour Rx Instructions: 6 tabs daily for 3 days, then reduce by 1 tab daily until completion. Continued atorvastatin 10 mg tablet 10 mg PO BEDTIME metoprolol succinate 100 mg tablet extended release 24 hr 100 mg PO BEDTIME aspirin 81 mg tablet,delayed release (DR/EC) 81 mg PO DAILY lisinopril 30 mg tablet 30 mg PO DAILY gabapentin 300 mg capsule 300 mg PO TID PRN (Reason: Pain) Discharge Orders: Discharge Order (Routine); Ordered 05/23/25 Ordered By: Lukasz Bonds Diet: Advance to usual diet Activity on Discharge: As tolerated Stand Alone Forms: Patient Portal Discharge page Print Language: Australian Care Plan Goals: recovery from Luther's Palsy Health Concerns: Luther's Palsy Plan of Treatment: Take Prednisone as directed: take 6 tabs daily for 3 days, starting tomorrow, and reduce by 1 tab every day until all done Take Valacyclovir 1 gram 3 times a day for 7 days follow up with your primary care doctor in a week, call for appoinemtnt Assessment: see above Patient Instructions: Luther Palsy (DC) Discharge Date/Time: 05/23/25 13:22
--- NOTE | 2025-05-23 12:39 | P.CNNE_ITS ---
History of Present Illness Data of Consult Service Date: 05/23/25 Primary Care Provider: Mathew Murry MD [facility] Reason for consult: Headache and left-sided facial weakness 55 years old man with past medical history of being prediabetic and rare headaches developed a left-sided headache 3-4 days ago. It was mostly in left side of the occiput an area behind the ear and the ear. At 1 time, his ear was burning. There was no change in hearing or taste. He was not having any obvious cold or flu-like illness. Next days headache got better and in fact he had flu shot. Later, while he was trying to drink something, he noted that water was coming out of his mouth. There was no obvious tingling and numbness or hand weakness or change in speech or language. He came to hospital for further evaluation. His initial head CT, CTA of brain and neck, an MRI of brain without contrast did not reveal any significant abnormality. Laboratories did not reveal any significant abnormality either. Blood pressure was moderately high. Review of Systems 2 Review of Systems: Constitutional:?No fever, chills, fatigue, weight loss, or night sweats. HEENT:? Left-sided ear pain and burning sensation in the ear. Cardiovascular:?No chest pain, palpitations, orthopnea, PND, or leg swelling. Respiratory:?No cough, shortness of breath, wheezing, or hemoptysis. Gastrointestinal:?No nausea, vomiting, abdominal pain, diarrhea, or constipation. Genitourinary:?No dysuria, frequency, incontinence, or hematuria. Musculoskeletal:?No joint pain, stiffness, weakness, or muscle aches. Neurological:?No dizziness, syncope, seizures, numbness, tingling, weakness, tremors, memory loss. Psychiatric:?No anxiety, depression, mood swings, sleep disturbance, or hallucinations. Endocrine:?No heat/cold intolerance, polydipsia, polyuria, or hair/skin changes. Hematologic/Lymphatic:?No easy bruising, bleeding, or lymphadenopathy. Integumentary (Skin):?No rash, lesions, itching, or color changes. Allergic/Immunologic:?No seasonal allergies, hives, or recurrent infections. [facility] Social History Social History Household Members: Family Housing: House Do you presently have visiting nurse or other home services: No Alcohol intake: current Alcohol intake frequency: a few times a month Patient Tobacco Use Status: Never used Tobacco Smoked in Last 30 Days: No Use of substances other than those prescribed or required for medical reasons: No Currently Displaying Signs/Symptoms of Drug Intoxication Withdrawal: No Have you been hit, kicked, punched, or otherwise hurt by someone within the past year? If so, by whom?: No Do you feel safe in your current relationship?: Yes Is there a partner from a previous relationship who is making you feel unsafe now?: No Advance Directives: No Advance Directives Information Provided: No Recently lost weight without trying: No Eating poorly because of decreased appetite: No Nutrition Risks: No Nutritional Risk Poor oral hygiene: No Meds Allergies Allergy/AdvReac Type Severity Reaction Status Date / Time Penicillins Allergy Anaphylaxis Verified 02/22/22 12:55 tree nut Allergy Angioedema Verified 05/21/25 18:48 Active Medications: Current Medications Acetaminophen (Acetaminophen 325 Mg Tablet) 975 mg PO Q6H PRN PRN Reason: Pain, Mild 1-3,fever,headache Aspirin (Aspirin Enteric Coated 81 Mg Tablet.Dr) 81 mg PO DAILY [facility] Last Admin: 05/23/25 09:14 Dose: 81 mg Atorvastatin Calcium (Atorvastatin Calcium 10 Mg Tablet) 10 mg PO BEDTIME [facility] Last Admin: 05/22/25 22:14 Dose: 10 mg Atovaquone (Atovaquone 750 Mg/5 Ml Oral.Susp) 750 mg PO BID [facility] Last Admin: 05/23/25 09:14 Dose: 750 mg Azithromycin (Azithromycin 500 Mg Tablet) 500 mg PO 2200 [facility] Last Admin: 05/22/25 22:14 Dose: 500 mg Calcium Carbonate (Calcium Carbonate 750 Mg Tab.Chew) 750 mg PO Q4H PRN PRN Reason: Heartburn Last Admin: 05/22/25 14:44 Dose: 750 mg Enoxaparin Sodium (Enoxaparin Sodium 40 Mg/0.4 Ml Syringe) 40 mg SUBCUT Q24H [facility] Last Admin: 05/22/25 22:14 Dose: 40 mg Gabapentin (Gabapentin 300 Mg Capsule) 300 mg PO TID PRN PRN Reason: leg pain Lisinopril (Lisinopril 10 Mg Tablet) 30 mg PO DAILY [facility]; Protocol Last Admin: 05/23/25 09:14 Dose: 30 mg Magnesium Hydroxide (Milk Of Magnesia 30 Ml Oral.Susp) 30 ml PO DAILY PRN PRN Reason: Constipation Melatonin (Melatonin 3 Mg Tablet) 6 mg PO BEDTIME PRN PRN Reason: Insomnia Metoprolol Succinate (Metoprolol Succinate Er 100 Mg Tab.Er.24h) 100 mg PO BEDTIME [facility]; Protocol Last Admin: 05/22/25 22:13 Dose: 100 mg Ondansetron HCl (Ondansetron Hcl 4 Mg/2 Ml Vial) 4 mg IVPUSH Q8H PRN PRN Reason: Nausea and Vomiting Oxycodone HCl (Oxycodone Hcl Immed Release 5 Mg Tablet) 5 mg PO Q6H PRN PRN Reason: Pain, Severe (Pain Scale 7-10) Prednisone (Prednisone 20 Mg Tablet) 60 mg PO DAILY [facility] Stop: 05/27/25 09:01 Last Admin: 05/23/25 09:14 Dose: 60 mg Sodium Chloride (0.9 % Sodium Chloride Flush 3 Ml Syringe) 3 ml IVFLUSH QSHIFT [facility] Last Admin: 05/22/25 22:14 Dose: 3 ml Valacyclovir HCl (Valacyclovir Hcl 1,000 Mg Tablet) 1,000 mg PO TID [facility] Last Admin: 05/23/25 09:14 Dose: 1,000 mg Home Medications ?Medication ?Instructions ?Recorded ?Confirmed ?Last Taken ?Type aspirin 81 mg tablet,delayed 81 mg PO DAILY 05/21/25 1 Unknown History release atorvastatin 10 mg tablet 10 mg PO BEDTIME 05/21/2505/20/25 History gabapentin 300 mg capsule 300 mg PO TID PRN Pain 05/2105/21/25 Unknown History lisinopril 30 mg tablet 30 mg PO DAILY 05/21/2505/1205/21/25 History metoprolol succinate 100 mg 100 mg PO BEDTIME 05/21/25 05/21/25 05/20/25 History tablet,extended release 24 hr Physical Exam 2 Vital Signs: Vital Signs: Last Vital Signs Temp 97.0 F 05/23/25 11:29 Pulse 70 05/23/25 11:29 Resp 16 05/23/25 11:29 BP 152/72 H 05/23/25 11:29 Pulse Ox 96 05/23/25 11:29 O2 Del Method Room Air 05/23/25 11:29 BMI result Body Mass Index 37.3 Neuro: Other: Mental Status: Alert and oriented to person, place, and time. Normal attention. Normal spontaneous speech, fluency, and comprehension. No obvious issues with mood and memory. Affect is appropriate. Cranial Nerves: CN II: Visual lowe full to confrontation, visual acuity intact. CN III, IV, : Pupils equal, round, reactive to light and accommodation. Extraocular movements are normal. CN V: Facial sensation is normal. CN VII: Mild left-sided peripheral type of facial weakness. CN VIII: Hearing intact to bedside conversation is normal. CN IX, X: Palate elevates symmetrically. CN XI: Shoulder shrug and head turn symmetrical. CN XII: Tongue midline without atrophy or fasciculations. Motor: Bulk and tone normal in all extremities. No significant muscle weakness in arms and legs. No drift. Reflexes: Deep tendon reflexes 2+ and symmetric. Plantar response down-going bilaterally. Coordination: [id number] and [id number] testing normal. No dysmetria. Gait and Station: No obvious gait abnormality. No ataxia or instability. Sensory: Intact to light touch, pinprick, and vibration. Romberg is negative. Extrapyramidal: Full facial expressions and blinking. No rigidity. Movements are appropriate with no tremor or abnormality. Speech: Normal; no dysarthria or tremor. Results Labs 05/23/25 05:37 05/23/25 05:37 Labs: Short CBC 05/23/25 Range/Units 05:37 WBC 14.9 H (4.8-10.8) X10*3/uL Hgb 13.2 L (14.0-18.0) g/dl Hct 41.0 L (42.0-52.0) % Plt Count 210 D (160-400) X10*3/uL BMP 05/23/25 05:37 Sodium 140 Potassium 3.9 Chloride 107 Carbon Dioxide 23 BUN 23 H Creatinine 1.01 Calcium 9.7 CTA of brain, CTA of brain and neck, an MRI of brain without contrast did not reveal any significant abnormality. Large mucous retention cyst was noted in right maxillary sinus. Assessment and Plan (1) Luther's palsy: Status: Acute 55 years old man with [id number] left Luther's palsy. He was educated about this condition and its common association with common viruses. Sometime it can be cause by [id number] diabetes or Lyme disease. His sugar was not that high and Lyme test is pending. My recommendation is to give him course of prednisone with valacyclovir. Aside from that, his blood pressure was high and he should pay attention to that and follow-up with his primary care physician for management of hypertension. Procedures Date of Service Date of Service: 05/23/25
--- NOTE | 2025-05-23 16:26 | MHC.CM.PN ---
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
[2025-05-25 12:49] LABS: Lyme Abs Screen <0.90 index
[2025-05-28 21:14] LABS: Anti GM1 IgG Titer <1:800 titer (<1:800)
[2025-05-31 07:09] LABS: A. Phagocytophilum Ab IgG <1:64 (<1:64); A. Phagocytophilum Ab IgM <1:20 (<1:20)
== END 2025-05-23 13:22 | disposition home or self-care (01) | DRG 48 ==
LOC: HO.ED 19:58 → HO.EDOVER 20:23 → HO.IMC 23:26
PROVIDERS: Physician Assistant Medical; Admitting Provider Physician Assistant; Emergency Provider Emergency Medicine; PCP Family Medicine; Visit Provider Internal Medicine
DX: G51.0 Bell's palsy (principal); E78.5 Hyperlipidemia, unspecified; G62.9 Polyneuropathy, unspecified; I10 Essential (primary) hypertension; Z79.82 Long term (current) use of aspirin; Z79.899 Other long term (current) drug therapy
CPT/HCPCS: 36415; 70450; 70496; 70498; 70551; 80048; 80061; 80307; 82947; 83520; 84443; 84484; 85025; 85027; 85610; 85730; 86617; 86618; 86666; 86753; 87207; 93005; 97161; 99285; J0131; J1200; J1650; J2765; J3360; Q9967

== ENCOUNTER → 2025-05-21 18:51 | Outpatient (BNV) | payer BC, SELFPAY | PROVIDERS: Emergency Provider Emergency Medicine; PCP Family Medicine; Visit Provider Student in an Organized Health Care Education/Training Program | DX: R51.9 Headache, unspecified (principal); R29.810 Facial weakness | CPT/HCPCS: 70450; 70496; 70498 ==

== ENCOUNTER → 2025-05-21 18:51 | Outpatient (BNV) | payer BC, SELFPAY | PROVIDERS: Admitting Provider Physician Assistant; Emergency Provider Emergency Medicine; PCP Family Medicine; Visit Provider Internal Medicine Cardiovascular Disease | DX: Z13.6 Encounter for screening for cardiovascular disorders (principal) | CPT/HCPCS: 93010 ==

== ENCOUNTER 2025-05-21 20:20 | Outpatient (BNV) | payer BC, SELFPAY | END 2025-05-22 15:47 | PROVIDERS: Admitting Provider Physician Assistant; Emergency Provider Emergency Medicine; PCP Family Medicine; Visit Provider Specialist | DX: R29.810 Facial weakness (principal) | CPT/HCPCS: 70551 ==

== ENCOUNTER → 2025-05-21 20:20 | Outpatient (BNV) | payer BC, SELFPAY | PROVIDERS: Admitting Provider Physician Assistant; Emergency Provider Emergency Medicine; PCP Family Medicine; Visit Provider Internal Medicine | DX: R51.9 Headache, unspecified (principal); R29.810 Facial weakness | CPT/HCPCS: 99232 ==

== ENCOUNTER → 2025-05-21 20:20 | Outpatient (BNV) | payer BC, SELFPAY | PROVIDERS: Admitting Provider Physician Assistant; Emergency Provider Emergency Medicine; PCP Family Medicine; Visit Provider Psychiatry & Neurology Neurology | DX: G51.0 Bell's palsy (principal) | CPT/HCPCS: 99254 ==